=== PATIENT | female | born 1975 | race Caucasian/White ===

== ENCOUNTER → 2016-09-29 | Outpatient (CLI) | payer OTHER ==
[2016-09-29 07:32] LABS: BASO # 0.1 x10^3/uL (0.0-0.2); BASO % 1 % (0-3); EOS % 5 % (0-3); HEMATOCRIT 41.2 % (36.0-47.0); HEMOGLOBIN 13.4 g/dL (12.0-15.5); LYMPH # 2.1 x10^3/uL (1.0-4.8); LYMPH % 28 % (24-48); MEAN CORPUSCULAR HEMOGLOBIN 30 pg (25-35); MEAN CORPUSCULAR HGB CONC 33 g/dL (31-37); MEAN CORPUSCULAR VOLUME 91 fL (79-100); MONO % 7 % (0-9); NEUT % 60 % (31-73); PLATELET COUNT 210 x10^3/uL (140-400); RED BLOOD COUNT 4.52 x10^6/uL (3.50-5.40); RED CELL DISTRIBUTION WIDTH 13.1 % (11.5-14.5); WHITE BLOOD COUNT 7.6 x10^3/uL (4.0-11.0)
[2016-09-29 08:11] LABS: CHOLESTEROL/HDL RATIO 2.4
[2016-09-29 08:21] LABS: FREE T4 0.85 ng/dL (0.76-1.46)
== END | disposition home or self-care (01) ==
LOC: LAB 07:18
PROVIDERS: ATTEND Obstetrics & Gynecology
DX: N92.0 Excessive and frequent menstruation with regular cycle (principal)
CPT/HCPCS: 36415; 80061; 84439; 84443; 85027

== ENCOUNTER 2016-11-18 08:26 | Day surgery (SDC) | payer OTHER ==
[~2016-11-18] VITALS: Ht 177.8 cm; Wt 88.5 kg
[~2016-11-18 08:26] MED LIST: CEFAZOLIN 2GM PREMIX 50 ML IV PRN; FENTANYL PF 100 MCG/2 ML VIAL. IV PRN; HYDROMORPHONE 2 MG/ML VIAL. IV PRN; IV RINGERS,LACTATED 1000ML 1,000 ML IV SCH; LIDOCAINE 1% 1 ML SYRINGE. ID PRN; MORPHINE SULFATE 2 MG/ML DISP.SYRIN. IV PRN; ONDANSETRON PF 4 MG/2 ML VIAL. IV PRN; PROCHLORPERAZINE 10 MG/2 ML VIAL. IV PRN; SCOPOLAMINE 1.5MG PATCH. TD ONE
[2016-11-18 08:45] LABS: NEG OBC UR NEG; POS OBC UR POS
[2016-11-18] MEDS ORDERED: ONDANSETRON PF 4 MG/2 ML VIAL. ONE (09:40)
[2016-11-18] MEDS ORDERED: DIPHENHYDRAMINE 50 MG/ML VIAL ONE (09:40)
[2016-11-18] MEDS ORDERED: LIDOCAINE 2% 100 MG/5 ML DISP.SYRIN. ONE (09:40)
[2016-11-18] MEDS ORDERED: PROPOFOL 20 ML IV ONE (09:40)
[2016-11-18] MEDS ORDERED: FENTANYL PF 100 MCG/2 ML VIAL. ONE (09:40)
[2016-11-18] MEDS ORDERED: MIDAZOLAM HCL 2 MG/2 ML VIAL. ONE (09:40)
[2016-11-18] MEDS ORDERED: FAMOTIDINE 20 MG/2 ML VIAL ONE (09:40)
[2016-11-18] MEDS ORDERED: ROCURONIUM 50 MG/5 ML VIAL. ONE (09:40)
[2016-11-18] MEDS ORDERED: DEXAMETHASONE SOD PHOS 20 MG/5 ML VIAL. ONE (09:40)
[2016-11-18] MEDS ORDERED: BUPIVACAINE-EPI 0.25%-1:200000 50 ML VIAL. ONE (11:05)
[2016-11-18] MEDS ORDERED: ACETAMINOPHEN INTRAVENOUS 100 ML IV ONE (11:27)
[2016-11-18] MEDS ORDERED: KETOROLAC 30 MG/ML SYRINGE FOR OR. INJ ONE (11:38)
[2016-11-18] MEDS ORDERED: GLYCOPYRROLATE 1 MG/5 ML VIAL. ONE (12:07)
[2016-11-18] MEDS ORDERED: NEOSTIGMINE METHYLSULFATE 5 MG/5 ML SYRINGE. ONE (12:26)
[2016-11-18] MEDS ORDERED: SEVOFLURANE 61 TO 120 MINUTES. IH ONE (12:40)
--- NOTE | 2016-11-18 12:41 | PDOC ---
BRIEF OPERATIVE NOTE Pre-Op Diagnosis 1. AUB 2. Sterliization Post-Op Diagnosis Same Procedure Performed 1. Endometrial Ablation 2. [facility] BTL Surgeon Dr. Kenyon Anesthesia Type: General Blood Loss 10 ml Specimens Obtained none Findings nml size uterus, nml fallopian tubes meseret., nml ovaries meseret.; heterogenous endometrial lining. Complications none Additional Remarks ptDUARTE Curiel Jr, MD Nov 18, 2016 12:41
--- NOTE | 2016-11-18 12:42 | DISCH ---
DISCHARGE INSTRUCTIONS Condition on Discharge Condition on Discharge: Stable Activity After Discharge Activity Instructions for Disc: Activity as tolerated Lifting Instructions after Dis: No heavy lifting Driving Instructions after Dis: Do not drive today Diet after Discharge Diet after Discharge: Regular Contacting the DRLeonard after DC Call your doctor for: Concerns you may have Follow-Up Follow up with: Dr. Kenyon in 2 weeks. DUARTE KENYON Jr, MD Nov 18, 2016 12:42
[2016-11-18] MEDS: FENTANYL PF 100 MCG/2 ML VIAL. IV PRN ×3 (13:09→13:33)
--- NOTE | 2016-11-18 13:09 | OP ---
DATE OF SURGERY: PREOPERATIVE DIAGNOSES: 1. Abnormal uterine bleeding. 2. Sterilization. POSTOPERATIVE DIAGNOSES: 1. Abnormal uterine bleeding. 2. Sterilization. PROCEDURES: 1. Endometrial ablation with HTA. 2. Laparoscopic bilateral tubal ligation via bipolar cauterization. SURGEON: Duarte Kenyon M.D. ANESTHESIA: GETA. ESTIMATED BLOOD LOSS: 10 mL. COMPLICATIONS: None. FINDINGS: Normal size uterus, normal fallopian tubes and ovaries bilaterally, heterogeneous endometrial lining. SUMMARY: A 41-year-old with history of abnormal uterine bleeding and also desires sterilization. The patient was counseled on risks, benefits and expectations of endometrial ablation as well as bilateral tubal ligation. The patient was also counseled on the failure rate of bilateral tubal ligation via cauterization and voiced a clear understanding to proceed. DESCRIPTION OF PROCEDURE: The patient was taken to surgery suite and placed in dorsal lithotomy position. She was prepped with Betadine for vaginal prep and ChloraPrep for abdominal prep. After adequate anesthesia, a weighted speculum was placed vaginally. Anterior lip of the cervix was grasped with a single tooth tenaculum. Cervix was dilated with Malia dilators up to size 7. The HTA hysteroscope was placed. The endometrium appeared heterogeneous. The ablation took place over a 10-minute period at 90 degree Celsius, at which the heterogeneous endometrium was thoroughly blanched at the conclusion of the procedure, the hysteroscope was then removed. The uterine acorn manipulator was then placed. Attention was now placed on abdomen. Small transverse skin incision was made just below the umbilicus with a scalpel. The Veress needle was then placed through the infraumbilical incision site. The abdomen was allowed to insufflate up to 1-1/2 liters of CO2 gas. The Veress needle was then removed. A 5-mm trocar was placed. The scope was positioned. The uterus appeared normal. Fallopian tubes and ovaries appeared normal. A second incision was made in the left lower quadrant, in which 5 mm trocar was placed. With the aid of EnSeal device, the left fallopian tube was cauterized in which the 3 cm segment just distal to the isthmus region was cauterized, same process took place with the right fallopian tube. The trocars were then removed under direct visualization. The abdomen was allowed to deflate as much as possible along with mechanical manipulation. The two skin incisions were reapproximated using 4-0 Vicryl suture in a subcuticular manner. 0.25% Marcaine with epinephrine was injected at each incision site. The uterine acorn manipulator and single tooth tenaculum were removed. The patient tolerated procedure well, was sent to recovery room in stable condition. Sponge and needle counts correct x 3. DUARTE KENYON MD DR: CAROLYN/sherice JOB#: [id number] / [id number]
[2016-11-18] MEDS ORDERED: OXYC-323 PO (13:10)
[2016-11-18 13:27] VITALS: BP 99/65
[2016-11-18] MEDS ORDERED: OXYCODONE/APAP 5/325 TABLET. PO PRN (13:30)
== END 2016-11-18 14:03 | disposition home or self-care (01) ==
LOC: SURG 08:26
PROVIDERS: ATTEND Obstetrics & Gynecology
DX: Z30.2 Encounter for sterilization (principal); N93.8 Other specified abnormal uterine and vaginal bleeding; Z72.89 Other problems related to lifestyle
CPT/HCPCS: 58670; 81025; A4215; J0131; J0690; J0780; J1100; J1200; J1885; J2250; J2405; J2704; J2710; J3010; J3490; J7120; S0028

== ENCOUNTER → 2016-12-30 | Outpatient (CLI) | payer OTHER ==
[~2016-12-30] MED LIST changes: -CEFAZOLIN 2GM PREMIX 50 ML IV PRN; -FENTANYL PF 100 MCG/2 ML VIAL. IV PRN; -HYDROMORPHONE 2 MG/ML VIAL. IV PRN; -IV RINGERS,LACTATED 1000ML 1,000 ML IV SCH; -LIDOCAINE 1% 1 ML SYRINGE. ID PRN; -MORPHINE SULFATE 2 MG/ML DISP.SYRIN. IV PRN; -ONDANSETRON PF 4 MG/2 ML VIAL. IV PRN; +OXYC-323 PO; -PROCHLORPERAZINE 10 MG/2 ML VIAL. IV PRN; -SCOPOLAMINE 1.5MG PATCH. TD ONE
--- NOTE | 2016-12-31 09:12 | RAD ---
DATE: 12/30/2016 EXAM: DIGITAL SCREEN BILAT W/CAD HISTORY: Routine screening COMPARISON: 05/17/2016, 10/30/2015, 10/23/2015 This study was interpreted with the benefit of Computerized Aided Detection (CAD). FINDINGS: There are scattered fibroglandular densities in the breasts. No new or enlarging breast densities are seen. A tiny smooth nodule seen posteriorly in the right breast on some of the prior images was not visualized on today's exam, probably due to technical differences and its far posterior location. No suspicious microcalcifications are identified. IMPRESSION: There is no mammographic evidence of malignancy in either breast. BI-RADS CATEGORY: 2 BENIGN FINDING(S) RECOMMENDED FOLLOW-UP: 12M 12 MONTH FOLLOW-UP PQRS compliance statement: Patient information was entered into a reminder system with a target due date for the next mammogram. Mammography is a sensitive method for finding small breast cancers, but it does not detect them all and is not a substitute for careful clinical examination. A negative mammogram does not negate a clinically suspicious finding and should not result in delay in biopsying a clinically suspicious abnormality. "Our facility is accredited by the [employer] Mammography [employer]."
== END | disposition home or self-care (01) ==
LOC: MAMMO 08:25
PROVIDERS: ATTEND Obstetrics & Gynecology
DX: Z12.31 Encounter for screening mammogram for malignant neoplasm of breast (principal)
CPT/HCPCS: G0202; 77067

== ENCOUNTER → 2017-09-27 | Outpatient (CLI) | payer OTHER | END | disposition home or self-care (01) | LOC: RAD 15:05 | DX: M77.32 Calcaneal spur, left foot (principal) | CPT/HCPCS: 73630 ==

== ENCOUNTER → 2017-10-04 | Outpatient (CLI) | payer OTHER ==
[2017-10-04 07:40] LABS: ADD MAN DIFF? NO
[2017-10-04 07:44] LABS: BASO # 0.1 x10^3/uL (0.0-0.2); BASO % 1 % (0-3); EOS # 0.3 x10^3/uL (0.0-0.7); EOS % 4 % (0-3); HEMATOCRIT 39.8 % (36.0-47.0); HEMOGLOBIN 13.2 g/dL (12.0-15.5); LYMPH # 2.2 x10^3/uL (1.0-4.8); LYMPH % 29 % (24-48); MEAN CORPUSCULAR HEMOGLOBIN 30 pg (25-35); MEAN CORPUSCULAR HGB CONC 33 g/dL (31-37); MEAN CORPUSCULAR VOLUME 91 fL (79-100); MONO # 0.5 x10^3/uL (0.0-1.1); MONO % 7 % (0-9); NEUT # 4.5 x10^3uL (1.8-7.7); NEUT % 59 % (31-73); PLATELET COUNT 228 x10^3/uL (140-400); RED BLOOD COUNT 4.37 x10^6/uL (3.50-5.40); RED CELL DISTRIBUTION WIDTH 13.2 % (11.5-14.5); WHITE BLOOD COUNT 7.5 x10^3/uL (4.0-11.0)
[2017-10-04 08:04] LABS: ALBUMIN 3.9 g/dL (3.4-5.0); ALBUMIN/GLOBULIN RATIO 1.3 (1.0-1.7); ALK PHOS 47 U/L (46-116); ALT (SGPT) 18 U/L (14-59); ANION GAP 5 (6-14); AST (SGOT) 17 U/L (15-37); BLOOD UREA NITROGEN 16 mg/dL (7-20); BUN/CREATININE RATIO 18 (6-20); CALCIUM 8.7 mg/dL (8.5-10.1); CARBON DIOXIDE 28 mmol/L (21-32); CHLORIDE 104 mmol/L (98-107); CHOLESTEROL 164 mg/dL (0-200); CREATININE 0.9 mg/dL (0.6-1.0); GFR 68.7; GLUCOSE 93 mg/dL (70-99); HDLC 65 mg/dL (40-60); LDLC 88 mg/dL (0-100); NON-HDL CHOLESTEROL 99 mg/dL (0-129); POTASSIUM 4.2 mmol/L (3.5-5.1); SODIUM 137 mmol/L (136-145); TOTAL BILIRUBIN 0.3 mg/dL (0.2-1.0); TOTAL PROTEIN 6.8 g/dL (6.4-8.2); TRIGLYCERIDES 56 mg/dL (0-150); VLDLC 11 mg/dL (0-40)
[2017-10-04 08:09] LABS: CHOLESTEROL/HDL RATIO 2.5
[2017-10-04 08:16] LABS: THYROID STIM HORMONE (TSH) 1.571 uIU/mL (0.358-3.74)
[2017-10-04 13:21] LABS: HEMOGLOBIN A1C 5.1 % (4.8-5.6)
== END | disposition home or self-care (01) ==
LOC: LAB 07:23
DX: Z13.1 Encounter for screening for diabetes mellitus (principal); Z13.220 Encounter for screening for lipoid disorders; F41.9 Anxiety disorder, unspecified
CPT/HCPCS: 36415; 80053; 80061; 83036; 84443; 85025

== ENCOUNTER → 2018-02-07 | Outpatient (CLI) | payer OTHER | END | disposition home or self-care (01) | LOC: MAMMO 14:05 | DX: Z12.31 Encounter for screening mammogram for malignant neoplasm of breast (principal) | CPT/HCPCS: 77063; 77067 ==

== ENCOUNTER → 2019-02-27 | Outpatient (CLI) | payer OTHER ==
[~2019-02-27] MED LIST changes: -OXYC-323 PO; +OXYC1TAB15 PO
--- NOTE | 2019-02-28 12:58 | RAD ---
DATE: 02/27/2019 EXAM: MAMMO MARGOTH SCREENING BILATERAL HISTORY: Routine screening COMPARISON: 02/07/2018 This study was interpreted with the benefit of Computerized Aided Detection (CAD). Breast Density: SCATTERED The breast parenchyma shows scattered fibroglandular densities. Breast parenchyma level B. FINDINGS: 2-D and 3-D tomosynthesis imaging was performed in CC and MLO projections. No new or enlarging breast densities are seen. No suspicious microcalcifications are evident. IMPRESSION: Stable mammograms without evidence of malignancy. BI-RADS CATEGORY: 1 NEGATIVE RECOMMENDED FOLLOW-UP: 12M 12 MONTH FOLLOW-UP PQRS compliance statement: Patient information was entered into a reminder system with a target due date for the next mammogram. Mammography is a sensitive method for finding small breast cancers, but it does not detect them all and is not a substitute for careful clinical examination. A negative mammogram does not negate a clinically suspicious finding and should not result in delay in biopsying a clinically suspicious abnormality. "Our facility is accredited by the [employer] Mammography [employer]."
== END | disposition home or self-care (01) ==
LOC: MAMMO 14:06
PROVIDERS: ATTEND Obstetrics & Gynecology
DX: Z12.31 Encounter for screening mammogram for malignant neoplasm of breast (principal)
CPT/HCPCS: 77063; 77067

== ENCOUNTER → 2019-06-27 | Outpatient (CLI) | payer OTHER ==
[2019-06-27 08:29] LABS: BASO # 0.1 x10^3/uL (0.0-0.2); BASO % 1 % (0-3); EOS # 0.3 x10^3/uL (0.0-0.7); EOS % 5 % (0-3); HEMATOCRIT 38.9 % (36.0-47.0); HEMOGLOBIN 13.1 g/dL (12.0-15.5); LYMPH # 1.8 x10^3/uL (1.0-4.8); LYMPH % 30 % (24-48); MEAN CORPUSCULAR HEMOGLOBIN 31 pg (25-35); MEAN CORPUSCULAR HGB CONC 34 g/dL (31-37); MEAN CORPUSCULAR VOLUME 93 fL (79-100); MONO # 0.4 x10^3/uL (0.0-1.1); MONO % 7 % (0-9); NEUT # 3.4 x10^3/uL (1.8-7.7); NEUT % 57 % (31-73); PLATELET COUNT 227 x10^3/uL (140-400); RED CELL DISTRIBUTION WIDTH 12.8 % (11.5-14.5)
[2019-06-27 08:42] LABS: CALCIUM 8.7 mg/dL (8.5-10.1); CHOLESTEROL/HDL RATIO 2.8; CREATININE 0.9 mg/dL (0.6-1.0); GFR 68.3; POTASSIUM 4.1 mmol/L (3.5-5.1)
== END | disposition home or self-care (01) ==
LOC: LAB 06:00
PROVIDERS: ATTEND Nurse Practitioner Family
DX: Z00.00 Encounter for general adult medical examination without abnormal findings (principal)
CPT/HCPCS: 36415; 80048; 80061; 82306; 84443; 85025

== ENCOUNTER → 2019-11-15 | Outpatient (CLI) | payer OTHER ==
[2019-11-16 02:08] LABS: FSH 5.6 mIU/mL (.); PROGESTERONE <0.1 ng/mL (.)
[2019-11-17 09:44] LABS: ESTROGEN LEVEL 187 pg/mL (.)
[2019-11-18 11:09] LABS: TESTOSTERONE FREE 0.04 ng/dL (0.10-0.85); TESTOSTERONE TOTAL 4 ng/dL (8-48)
== END | disposition home or self-care (01) ==
LOC: LAB 14:27
PROVIDERS: ATTEND Obstetrics & Gynecology
DX: N95.1 Menopausal and female climacteric states (principal); R68.82 Decreased libido
CPT/HCPCS: 36415; 82626; 82670; 82672; 83001; 84144; 84402; 84403

== ENCOUNTER → 2020-03-18 | Outpatient (CLI) | payer OTHER ==
--- NOTE | 2020-03-18 17:46 | RAD ---
BILATERAL SCREENING MAMMOGRAM, 3-D History: Routine screening. Comparison: 10/23/2015, 05/17/2016 right lateral images, 12/30/2016, 02/07/2018, 02/27/2019. Technique: MLO and CC digital tomosynthesis (3D) images obtained. Radiologist reviewed these images on dedicated workstation. Findings: Breast Tissue Density B : There are scattered areas of fibroglandular density. There are no dominant masses, suspicious microcalcifications, or architectural distortion. IMPRESSION: No mammographic evidence of malignancy. Recommend routine screening. BI-RADS category 1: Negative. The images were reviewed with computer-aided detection. Patient information is entered into reminder system with a target due date for the next screening mammogram. Mammography is the most sensitive method for finding small breast cancers, but it does not detect them all and is not a substitute for careful clinical examination. A negative mammogram does not negate a clinically suspicious finding and should not result in delay in biopsying a clinically suspicious abnormality. "Our facility is accredited by the [employer] Mammography [employer]." Electronically signed by: Angus Snell MD (03/18/2020 5:43 PM) [facility]
== END | disposition home or self-care (01) ==
LOC: MAMMO 09:08
PROVIDERS: ATTEND Obstetrics & Gynecology
DX: Z12.31 Encounter for screening mammogram for malignant neoplasm of breast (principal)
CPT/HCPCS: 77063; 77067

== ENCOUNTER → 2020-07-02 | Outpatient (CLI) | payer OTHER | LOC: LAB 07:57 | PROVIDERS: ATTEND Internal Medicine Pulmonary Disease | DX: J02.9 Acute pharyngitis, unspecified (principal); R19.7 Diarrhea, unspecified; M79.10 Myalgia, unspecified site; Z20.828 Contact with and (suspected) exposure to other viral communicable diseases | CPT/HCPCS: U0003 ==

== ENCOUNTER → 2021-02-24 | Outpatient (CLI) | payer OTHER ==
[2021-02-24 08:05] LABS: BASO # 0.1 x10^3/uL (0.0-0.2); BASO % 1 % (0-3); EOS # 0.2 x10^3/uL (0.0-0.7); EOS % 2 % (0-3); HEMATOCRIT 39.1 % (36.0-47.0); LYMPH # 1.7 x10^3/uL (1.0-4.8); LYMPH % 20 % (24-48); MEAN CORPUSCULAR HEMOGLOBIN 31 pg (25-35); MEAN CORPUSCULAR HGB CONC 33 g/dL (31-37); MEAN CORPUSCULAR VOLUME 92 fL (79-100); MONO # 0.5 x10^3/uL (0.0-1.1); MONO % 6 % (0-9); NEUT # 6.2 x10^3/uL (1.8-7.7); NEUT % 72 % (31-73); PLATELET COUNT 211 x10^3/uL (140-400); RED BLOOD COUNT 4.23 x10^6/uL (3.50-5.40); RED CELL DISTRIBUTION WIDTH 13.4 % (11.5-14.5); WHITE BLOOD COUNT 8.7 x10^3/uL (4.0-11.0)
[2021-02-24 08:27] LABS: CREATININE 0.8 mg/dL (0.6-1.0); GFR 77.6; POTASSIUM 4.2 mmol/L (3.5-5.1)
[2021-02-24 08:28] LABS: CHOLESTEROL/HDL RATIO 2.6
== END ==
LOC: LAB 06:41
PROVIDERS: ATTEND Nurse Practitioner Family
DX: Z00.00 Encounter for general adult medical examination without abnormal findings (principal); Z13.21 Encounter for screening for nutritional disorder
CPT/HCPCS: 36415; 80048; 80061; 82306; 84443; 85025

== ENCOUNTER → 2021-03-11 | Outpatient (CLI) | payer OTHER ==
--- NOTE | 2021-03-11 15:44 | RAD ---
MG BILAT SCREEN+MARGOTH 03/11/2021 8:45 AM INDICATION: Asymptomatic screening mammogram. COMPARISON: 03/18/2020, 02/27/2019, 02/07/2018 TECHNIQUE: 3D tomosynthesis was performed in CC and MLO projections. 2D views were obtained from the 3D data. CAD was utilized as needed. FINDINGS: Breast density: Category C: The breats are heterogeneously dense, which may obscure small masses. Right breast: There are no suspicious microcalcifications, masses or areas of architectural distortio n. Left breast: There are no suspicious microcalcifications, masses or areas of architectural distortion . Bilateral mammogram is compared to prior examinations appears unchanged. IMPRESSION: Negative bilateral mammogram. BI-RADS category: 1; Negative Recommendations: Recommend annual screening mammography in one year. Electronically signed by: Kortney Taylor MD (03/11/2021 3:42 PM) [email or web address]
== END ==
LOC: MAMMO 08:43
PROVIDERS: ATTEND Nurse Practitioner Women's Health
DX: Z12.31 Encounter for screening mammogram for malignant neoplasm of breast (principal)
CPT/HCPCS: 77063; 77067

== ENCOUNTER → 2021-09-07 | Outpatient (CLI) | payer OTHER | LOC: LAB 07:11 | PROVIDERS: ATTEND Internal Medicine Pulmonary Disease | DX: U07.1 COVID-19 (principal) | CPT/HCPCS: U0003; U0005 ==